=== PATIENT | female | born 1985 | race Caucasian/White ===

== ENCOUNTER → 2016-03-25 | Outpatient (CLI) | payer OTHER ==
[2016-03-25 10:19] LABS: HEMATOCRIT 34.4 % (37-47)
[2016-03-25 11:32] LABS: GTGD 50 Grams
[2016-03-25 11:36] LABS: URINE APPEARANCE CLEAR (CLEAR); URINE BILIRUBIN NEG (NEG); URINE COLOR YELLOW; URINE EPITHELIAL CELL AUTO >30 /lpf (0-5); URINE NITRITE NEG (NEG); URINE PH 6.5 (4.5-7.5); URINE SPECIFIC GRAVITY 1.016 (1.000-1.030); UROBILINOGEN NEG (NEG)
[2016-03-25 11:39] LABS: MANUAL MICROSCOPIC REQUIRED? NO; REVIEW REQ? NO
== END | disposition home or self-care (01) ==
LOC: C.LAB1850 08:50
PROVIDERS: ATTEND Obstetrics & Gynecology
DX: Z34.92 Encounter for supervision of normal pregnancy, unspecified, second trimester (principal)

== ENCOUNTER → 2016-04-22 | Outpatient (CLI) | payer OTHER | END | disposition home or self-care (01) | LOC: C.LAB1850 09:19 | PROVIDERS: ATTEND Obstetrics & Gynecology | DX: Z34.92 Encounter for supervision of normal pregnancy, unspecified, second trimester (principal) ==

== ENCOUNTER → 2016-05-20 | Outpatient (CLI) | payer OTHER | END | disposition home or self-care (01) | LOC: C.LABSPEC 14:39 | PROVIDERS: ATTEND Obstetrics & Gynecology | DX: Z34.83 Encounter for supervision of other normal pregnancy, third trimester (principal) ==

== ENCOUNTER 2016-06-22 17:58 | Outpatient (CLI) | payer OTHER ==
--- NOTE | 2016-06-24 06:55 | EDITING REQUIRED CODING QUERY ---
CARPENTER BULB Carpenter bulb is documented by nursing as being inserted for 06/22/16, please clarify below: ( ) Carpenter bulb was inserted BRIEF DESCRIPTION: ( X ) Carpenter bulb was not inserted ( ) Other, please clarify: Cervix was favorable, so bulb was not inserted. Had NST and went home Thank you for your assistance, Lizzette Quiroga - Elementary Substitute Teacher
== END 2016-06-22 19:20 | disposition home or self-care (01) ==
LOC: C.OPB 17:58 → C.LD 17:58 → C.OPB 19:20
PROVIDERS: ATTEND Obstetrics & Gynecology
DX: O48.0 Post-term pregnancy (principal); Z3A.41 41 weeks gestation of pregnancy

== ENCOUNTER 2016-06-23 07:38 | Inpatient (IN) | payer OTHER ==
[~2016-06-23] VITALS: Ht 162.6 cm; Wt 98.6 kg
[2016-06-23] MEDS ORDERED: LACTATED RINGER'S 1000ML 1,000 ML IV PRN (07:59)
[2016-06-23] MEDS ORDERED: LACTATED RINGER'S 1000ML 500 ML IV PRN ×2 (08:05→15:57)
[2016-06-23] MEDS ORDERED: OXYTOCIN 30 UNITS/500ML NSS IV PRN ×2 (08:15→18:15)
[2016-06-23] MEDS: LACTATED RINGER'S 1000ML 1,000 ML IV SCH ×2 (08:25→15:58)
[2016-06-23] MEDS ORDERED: PENICILLIN G POTASSIUM IV 6 MU in DEXTROSE 5% 250ML 250 ML IV ONE (08:30)
[2016-06-23 08:37] LABS: HEMATOCRIT 36.2 % (37-47); MEAN CELL VOLUME 81.2 fL (80-100); MEAN CORPUSCULAR HEMOGLOBIN 26.5 pg (25-34); MEAN CORPUSCULAR HGB CONC 32.6 g/dl (32-36); PLATELET COUNT 159 K/uL (130-400); RED BLOOD COUNT 4.46 M/uL (4.2-5.4); WHITE BLOOD COUNT 7.94 K/uL (4.8-10.8)
[2016-06-23 09:42] VITALS: Ht 162.6 cm; Wt 98.6 kg
[2016-06-23] MEDS: PENICILLIN G POTASSIUM IV 3 MU in DEXTROSE 5% 100ML 100 ML IV PRN ×2 (13:16→17:37)
[2016-06-23] MEDS ORDERED: BUPIVACAINE 0.25% 30 ML VIAL ONE (14:23)
[2016-06-23] MEDS ORDERED: EpHEDrine SULFATE INJ 50 MG/ML AMP ONE (14:24)
[2016-06-23] MEDS ORDERED: FENTANYL CITRATE INJ 50 MCG/1 ML 2 ML VIAL ONE (14:25)
[2016-06-23] MEDS ORDERED: FENTANYL 2MCG/ML ROPIV 1.25MG/ML 100ML BAG EPI ONE (14:26)
[2016-06-23] MEDS ORDERED: NALOXONE HCL INJ 1 MG in SODIUM CHLORIDE 0.9% 1000ML 1,000 ML IV PRN (15:57)
[2016-06-23] MEDS ORDERED: NALBUPHINE HCL INJ 10 MG/ML AMP IV PRN (16:00)
[2016-06-23] MEDS ORDERED: FENTANYL 2MCG/ML ROPIV 1.25MG/ML 100ML BAG EPI PRN (16:00)
[2016-06-23] MEDS ORDERED: NALOXONE HCL INJ 0.4 MG/1 ML VIAL/CARP IV PRN (16:00)
[2016-06-23] MEDS ORDERED: EpHEDrine SULFATE INJ 50 MG/ML AMP IV PRN (16:00)
[2016-06-23] MEDS ORDERED: PROMETHAZINE HCL INJ 6.25 MG in SODIUM CHLORIDE 0.9% 50ML 50 ML IV PRN (16:00)
[2016-06-23] MEDS ORDERED: ONDANSETRON INJ 2 MG/ML 2 ML VIAL IV PRN (16:00)
[2016-06-23] MEDS ORDERED: DiphenhydrAMINE HCL 50 MG/ML VIAL IV PRN (16:00)
[2016-06-23] MEDS ORDERED: ACETAMINOPHEN/CODEINE 300/30MG TAB PO PRN ×2 (18:15)
[2016-06-23] MEDS ORDERED: LANOLIN OINT EXT PRN ×2 (18:15)
[2016-06-23] MEDS ORDERED: ACETAMINOPHEN 325 MG TAB PO PRN (18:15)
[2016-06-23] MEDS ORDERED: DIPHTHERIA/TETANUS/PERTUSSIS 0.5 ML SYR/VIAL IM. ONE (18:15)
[2016-06-23] MEDS ORDERED: BENZOCAINE 20% AER SPR 82.5 GM CAN EXT PRN (18:15)
[2016-06-23] MEDS ORDERED: HYDROCORTISONE ACETATE 25 MG SUPP PR PRN (18:15)
[2016-06-23] MEDS ORDERED: SUPERCREAM 0.870 % 15GM JAR EXT PRN (18:15)
[2016-06-23] MEDS: IBUPROFEN 600 MG TAB PO PRN (20:51)
[2016-06-23] MEDS: DOCUSATE SODIUM 100 MG CAP PO SCH (21:15)
[2016-06-23 21:50] VITALS: BP 126/74; PULSE 66; TEMP 36.7; O2SAT 96
--- NOTE | 2016-06-23 22:58 | Anesthesiology Progress Note ---
Anesthesia Post Op Note Date & Time June 23, 2016 at 22:57 Vital Signs Pain Intensity: 2.0 Vital Signs Past 12 Hours Date Time Temp Pulse Resp B/P Pulse Ox O2 Delivery O2 Flow Rate FiO2 06/23/16 21:50 36.7 66 18 126/74 96 Room Air 06/23/16 21:50 96 Room Air Notes Mental Status: alert / awake / arousable, participated in evaluation Pt Amnestic to Procedure: Yes Nausea / Vomiting: adequately controlled Pain: adequately controlled Airway Patency, RR, SpO2: stable & adequate BP & HR: stable & adequate Hydration State: stable & adequate Anesthetic Complications: no major complications apparent
[2016-06-23 23:55] VITALS: BP 108/63; PULSE 61; TEMP 36.6; O2SAT 96
[2016-06-24] MEDS: IBUPROFEN 600 MG TAB PO PRN ×4 (01:44→21:56)
--- NOTE | 2016-06-24 02:54 | DELIVERY SUMMARY ---
DATE OF OPERATION: 06/23/2016 FINDINGS: A viable male with Apgars of 8 and 9. Baby delivered by low forceps delivery for terminal bradycardia. Baby delivered over a midline second-degree laceration with left sulcus tear. Cord gases, cord blood samples obtained. Placenta delivered spontaneously and sent for pathological evaluation. Lacerations repaired with 4-0 and 2-0 Vicryl. ESTIMATED BLOOD LOSS: 300 mL LABOR NOTE: The patient is a 30-year-old 2, para 1, with an EDC of 06/14/2016 by last menstrual period and confirmed by first trimester ultrasound, who was admitted at 41-plus weeks gestational age for postdates induction. The patient had had a benign course. Blood type is A positive, antibody negative, rubella immune, hepatitis B negative. She had a negative second trimester maternal serum AFP test and had normal one-hour Glucola x2. The patient did have a positive third trimester beta-strep culture. Upon admission, the patient was 3-4 cm dilated and 70% effaced with -2 station. With a positive GBS, she was started on penicillin, 6 million unit loading dose, then 3 million units every 4 hours until delivery. Pitocin was initiated per induction protocol. After the second dose of Pitocin had hung, the patient had artificial rupture of membranes for clear fluid. The patient had run a low baseline during the third trimester at approximately 105 and that continued in labor. The patient became uncomfortable after the artificial rupture of membranes and anesthesia was consulted and an epidural was placed. After the epidural, the patient had a bradycardic episode into the 80s and 90s. While there was no marked hypotension, there had been a drop in blood pressure, so empiric ephedrine was given of 10 mg to bring the blood pressure up. The heart rate stabilized again at 105 to 110 with good variability and was felt to be category 2 and she began her second stage. When she began her second stage, the baby immediately developed marked bradycardia down into the 60s with no return to baseline. Pitocin was discontinued. The patient was making a good maternal effort at a +2/+3 station and direct OA presentation. Because of the marked bradycardia, eminent delivery was felt to be needed secondary to the now category 3 tracing. Pediatrics was summoned for the delivery and Dewees forceps was placed and the baby was then delivered with the next contraction over a midline second-degree laceration with a left sulcus tear. Nuchal cord x1 was reduced on the perineum with a short cord, good vigorous cry at . Cord was clamped and cut and the baby was taken over to the resuscitation stand to be evaluated by pediatrics. Cord gases, cord blood samples obtained and the placenta was delivered spontaneously. Inspection of the perineum showed the midline second-degree laceration with a left sulcus tear. The cervix had no lacerations. The left sulcus tear was closed with interrupted 2-0 Vicryl figure of eight sutures. The midline laceration was repaired with 4-0 and 2-0 Vicryl. Estimated blood loss 300 mL. Sponge and needle count was correct. I attest to the content of the Intraoperative Record and any orders documented therein. Any exceptio ns are noted below.
[2016-06-24 04:05] VITALS: BP 114/65; PULSE 70; TEMP 36.4; O2SAT 96
[2016-06-24 05:59] LABS: HEMATOCRIT 31.4 % (37-47)
--- NOTE | 2016-06-24 06:35 | Progress Note ---
Subjective June 24, 2016. Subjective conversation w/ patient, physical exam, lab review Ambulation: ambulating normally Voiding: no voiding problems Passing Gas: Yes Diet Tolerance: Regular Diet Lochia: Moderate Feeding Type: Breast Feeding Pain: improves with med Comment: Patient was seen at the bedside. No acute event overnight. Review of Systems Constitutional: No fever Respiratory: No cough, No shortness of breath Cardiac: No chest pain Breast: No breast lump Abdomen: No nausea, No pain, No vomiting Female : No dysuria Denies headache Objective Vital Signs Date Time Temp Pulse Resp B/P Pulse Ox O2 Delivery O2 Flow Rate FiO2 06/24/16 04:05 36.4 70 18 114/65 96 Room Air 06/23/16 23:55 96 Room Air 06/23/16 23:55 36.6 61 18 108/63 96 Room Air 06/23/16 21:50 36.7 66 18 126/74 96 Room Air 06/23/16 21:50 96 Room Air Physical Exam General Appearance: WELL-APPEARING, WD/WN, NO APPARENT DISTRESS Respiratory/Chest: chest non-tender, lungs clear, normal breath sounds, no respiratory distress Cardiovascular: regular rate, rhythm Abdomen: normal bowel sounds, non tender, soft Fundus: Firm, Relation to Umbilicus (at the U) Extremities: non-tender, no pedal edema, no calf tenderness Laboratory Results Last 24 Hours Test 06/23/16 08:27 06/24/16 05:40 White Blood Count 7.94 K/uL Red Blood Count 4.46 M/uL Hemoglobin 11.8 g/dL 10.3 g/dL Hematocrit 36.2 % 31.4 % Mean Corpuscular Volume 81.2 fL Mean Corpuscular Hemoglobin 26.5 pg Mean Corpuscular Hemoglobin Concent 32.6 g/dl RDW Standard Deviation 42.3 fL RDW Coefficient of Variation 14.3 % Platelet Count 159 K/uL Mean Platelet Volume 12.0 fL Medications Current Inpatient Medications Medications (Trade) Dose Ordered Sig/[place] Route Start Time Stop Time Status Last Admin Dose Admin Prenat Multivit/ [place]/Iron/Folic Ac ( Vitamin Tab) 1 tab QAM PO 06/24/16 08:00 07/24/16 07:59 Oxytocin (Pitocin IV) 30 units UD PRN IV 06/23/16 18:15 07/23/16 18:14 Benzocaine (Dermoplast Aero Spr) 1 appln PRN PRN EXT 06/23/16 18:15 07/23/16 18:14 06/23/16 20:51 165 APPLN Cocaine HCl (Supercream 0.870% Cr) BID PRN EXT 06/23/16 18:15 07/07/16 18:14 Hydrocortisone Acetate (Anusol Hc Supp) 25 mg BID PRN AL 06/23/16 18:15 07/23/16 18:14 Lanolin (Lanolin Oint) PRN PRN EXT 06/23/16 18:15 07/23/16 18:14 Ibuprofen (Motrin Tab) 600 mg Q4H PRN PO 06/23/16 18:15 07/23/16 18:14 06/24/16 01:44 600 MG Acetaminophen (Tylenol Tab) 650 mg Q6H PRN PO 06/23/16 18:15 07/23/16 18:14 Acetaminophen/ Codeine Phosphate (Tylenol w/ Codeine #3 Tab) 1 tab Q4H PRN PO 06/23/16 18:15 07/23/16 18:14 Acetaminophen/ Codeine Phosphate (Tylenol w/ Codeine #3 Tab) 2 tab Q4H PRN PO 06/23/16 18:15 07/23/16 18:14 Bisacodyl (Dulcolax Tab) 5 mg 20 PO 06/24/16 20:00 06/24/16 20:01 Docusate Sodium (coLACE CAP) 100 mg BID PO 06/23/16 20:00 07/23/16 19:59 06/23/16 21:15 100 MG Ferrous Sulfate (Feosol Tab) 325 mg DAILY PO 06/24/16 08:00 07/24/16 07:59 Assessment and Plan Post- Day#: 1 Continue Routine Care: A/P: This is a 30 y/o female, , s/p normal vaginal delivery. She is ambulating and clinically stable. Plan: - Vitals signs are reviewed and WNL (Tmax 36.7 ) - Last Hgb is 10.3 - Blood type A+, GBS positive, Rubella Immune - Routine care - Encourage ambulation, monitor and control pain with medication as needed , continue with regular diet as tolerated and monitor lochia - Stool softeners and sitz bath recommended - Encourage breast feeding and educate about breast feeding Resident Physician Supervision Note: I interviewed and examined the patient. Discussed with Dr. Gagnon and agree with findings and plan as documented in the note. Any exceptions or clarifications are listed here: Discussed delivery and need for operative vaginal delivery again Documented By: Earnest Delgadillo
[2016-06-24 07:45] VITALS: BP 109/62; PULSE 76; TEMP 36.6
[2016-06-24] MEDS: DOCUSATE SODIUM 100 MG CAP PO SCH ×2 (07:54→20:15)
[2016-06-24] MEDS: FERROUS SULFATE 325 MG TAB PO SCH (07:54)
[2016-06-24] MEDS: PRENATAL VITAMIN TAB PO SCH (07:54)
[2016-06-24] MEDS ORDERED: PRENATAL VITAMIN TAB PO SCH (08:00)
[2016-06-24 12:05] VITALS: BP 116/77; PULSE 80; TEMP 36.4
[2016-06-24 15:15] VITALS: BP 109/71; PULSE 72; TEMP 36.7; O2SAT 97
[2016-06-24] MEDS ORDERED: BISACODYL 5 MG TABEC PO SCH (20:00)
[2016-06-24 23:45] VITALS: BP 118/66; PULSE 75; TEMP 36.6
--- NOTE | 2016-06-25 03:44 | Discharge Instructions ---
Discharge Instructions Date of Service June 25, 2016. Admission Reason for Admission: Induction Discharge Discharge Diagnosis / Problem: s/p vaginal delivery Discharge Goals Goal(s): Routine recovery after delivery Activity Recommendations Activity Limitations: per Instructions/Follow-up section . Instructions / Follow-Up Instructions / Follow-Up ACTIVITY RECOMMENDATIONS: * Gradual return to full activity over the next 2-3 weeks. * No lifting - nothing heavier than baby over the next 2-3 weeks. * Do not engage in vigorous exercise, sexual activity or sports until cleared by your physician. * Do not drive or operate any motorized equipment until cleared by your physician. * You may shower/bathe daily. MEDICATIONS: For discomfort or pain, you may use Acetaminophen (Tylenol), Ibuprofen (Advil), or Naproxen (Aleve) following the package directions. For constipation you may use Colace following the package directions. BREAST CARE: If you are not breast feeding: * Wear a supportive bra 24 hours a day for one to two weeks. * Avoid stimulating your breasts and nipples as much as possible during the first few weeks after delivery. * When taking a shower, have the warm water hit your back, not breasts. * When your breasts feel full, apply ice packs. Usually three to four times a day helps ease the discomfort. * Take a mild pain medication (Tylenol / Motrin) when you are uncomfortable. If breast feeding: * Use breast milk to lubricate nipples. Lansinoh cream may be used for sore nipples. You do not need to remove cream prior to breast feeding. If using a different brand of cream, check the label for directions regarding removal of cream prior to nursing. * Wear a supportive bra. * If having problems with breasts or breast feeding, call a fundraising consultant or your health care provider. EPISIOTOMY CARE: After delivery, if you have an episiotomy (stitches), the following steps will ease discomfort and aid healing. * For the first 24 hours after delivery, place ice packs next to your episiotomy to help reduce swelling. * After the first 24 hour-period, sitz baths, either portable or in the tub, are suggested. A shower with a shower arm sprayed over the episiotomy may be comforting. * Amanda care should be done after each voiding and bowel movement. Squirt warm water from a plastic bottle over the perineum (region of the body between the anus and urinary opening) and pat dry. * Use Dermoplast to ease discomfort. Shake container. [place] directly over the episiotomy. Place a Tucks on a clean sanitary pad next to your episiotomy. SPECIAL CARE INSTRUCTIONS: When you are discharged from the hospital, it is important for you to follow the instructions listed below: * During the first week at home, you should be able to care for yourself and your baby. In addition, the usual light household activities are encouraged. * Limit your activities to the way you feel. Do not try to clean the house or move furniture. Be sensible. * If you actively engage in sports and have done so up until the time of your delivery, you may resume these activities as soon as you feel able. This may take up to one month or even longer. Use good judgment. * Continue to take your vitamins for at least six weeks after the of your baby. * Your diet need not be limited unless you were on a special diet before your delivery. Breast-feeding mothers need around 2500 calories per day and at least 64-80 ounces of fluid per day (8 to 10 glasses). * You should eat foods from the four major food groups. Crash diets or fad diets are to be avoided. Eating lean meats, fresh fruits and vegetables, low-fat dairy products, high fiber foods and a regular exercise program, will help you get back to your pre- weight without putting your health at risk. * Constipation is sometimes a problem after delivery. Take a mild laxative as needed. If breast feeding, Milk of Magnesia is acceptable to use. You may use a suppository or Fleets enema if no episiotomy. * A daily shower or tub bath is suggested. Be sure to thoroughly and gently dry the perineum. * A bloody vaginal discharge will usually continue until around four weeks post . A small amount of bleeding may continue for as long as six weeks. Vaginal discharge changes from the bright red bleeding after delivery to pink then brownish and finally yellowish-pink before becoming white and disappearing. * Bleeding may increase with activity. Your first period may come in 4-8 weeks. If you are breast feeding, your period may be delayed even longer. * Chestnut (sex) can begin whenever both you and your partner feel comfortable and do not have any form of genital infection. It is recommended that you wait at least six weeks for internal and external healing to occur. If you have questions, please talk to your health care practitioner. A condom should be used to prevent infection and . * Foreplay, gentle intercourse and lubrication is very important the first several times to prevent pain. A water-based lubricant such as K-Y jelly or Astroglide may be used. * If you have RH negative blood and your baby is RH positive, you will receive RHOGAM by injection prior to discharge. The nurse will give you a card to keep with you that has the date and place that you received RHOGAM after delivery. * During your care, you had a Rubella screen done to check for the presence of rubella antibodies in your blood. If your test was negative, you will receive a Rubella vaccine prior to discharge. This vaccine may cause a fever, soreness at the injection site and flu-like symptoms. If these symptoms persist, notify your health care practitioner. is not advised for one month after a Rubella vaccine. * Verbalizes understanding of car seat law as reviewed with patient nursing. * Car Seat hand-out given and reviewed with patient by nursing. * Shaken baby information reviewed with patient by nursing. Call you doctor if: * Heavy bleeding (saturating several pads an hour) or passing clots the size of your fist. * A fever >101 degrees F (38.3 degrees C) on two occasions four hours apart and /or chills. * Unusual pain in the pelvic or vaginal areas. * "Baby Blues" lasting longer than two weeks. If you have any questions or concerns, call your health care practitioner at . FOLLOW UP VISIT: * Please call the office at to schedule a 6 week examination. It is important you keep this appointment. It is important for you to make arrangements for either yearly or twice yearly check-ups thereafter. Current Hospital Diet Patient's current hospital diet: Regular OB Diet Discharge Diet Recommended Diet: Regular OB Diet Pending Studies Studies pending at discharge: no Medical Emergencies . Who to Call and When: Medical Emergencies: If at any time you feel your situation is an emergency, please call 911 immediately. . Non-Emergent Contact Non-Emergency issues call your: Primary Care Provider, [employer] . . "Provider Documentation" section prepared by Sharla Ch. . VTE Core Measure Inpt VTE Proph given/why not?: Treatment not indicated
[2016-06-25] MEDS: IBUPROFEN 600 MG TAB PO PRN ×2 (06:13→11:39)
--- NOTE | 2016-06-25 07:23 | Progress Note ---
Subjective June 25, 2016. Subjective conversation w/ patient, physical exam Ambulation: ambulating normally Voiding: no voiding problems Passing Gas: Yes Diet Tolerance: Regular Diet Lochia: Moderate Feeding Type: Breast Feeding Review of Systems Constitutional: No problem reported Respiratory: No problem reported Cardiac: No problem reported Breast: No problem reported Abdomen: No problem reported Female : No problem reported Objective Vital Signs Date Time Temp Pulse Resp B/P Pulse Ox O2 Delivery O2 Flow Rate FiO2 06/24/16 23:45 Room Air 06/24/16 23:45 36.6 75 16 118/66 Room Air 06/24/16 16:30 Room Air 06/24/16 15:15 36.7 72 16 109/71 97 Room Air 06/24/16 12:05 36.4 80 18 116/77 Room Air 06/24/16 07:45 Room Air 06/24/16 07:45 36.6 76 18 109/62 Room Air Physical Exam General Appearance: WELL-APPEARING, NO APPARENT DISTRESS Respiratory/Chest: no respiratory distress Cardiovascular: regular rate, rhythm Abdomen: non tender, soft Fundus: Firm Extremities: normal inspection Laboratory Results Last 24 Hours Test 06/24/16 05:40 Hemoglobin 10.3 g/dL Hematocrit 31.4 % Assessment and Plan Post- Day#: 2 Continue Routine Care: PPD#2 feeling well. Discharge home today. Discharge teaching done. RTO 6w .
[2016-06-25 07:40] VITALS: BP 106/65; PULSE 53; TEMP 36.5; O2SAT 95
[2016-06-25 08:00] VITALS: BP 100/65; PULSE 95; TEMP 37
[2016-06-25] MEDS: FERROUS SULFATE 325 MG TAB PO SCH (08:13)
[2016-06-25] MEDS: DOCUSATE SODIUM 100 MG CAP PO SCH (08:13)
[2016-06-25] MEDS: PRENATAL VITAMIN TAB PO SCH (08:13)
[2016-06-25 12:30] VITALS: BP_DIAS 65; PULSE 53; TEMP 36.5
--- NOTE | 2016-06-25 18:53 | DISCHARGE SUMMARY ---
ADMITTING DIAGNOSIS: 1. Postdates at 41+ weeks' gestational age. DISCHARGE DIAGNOSES: 1. Same. 2. Terminal bradycardia. PROCEDURES PERFORMED: 1. Low forceps delivery. 2. Repair of midline laceration and left sulcus tear. ADMISSION HISTORY: The patient is a 30-year-old 2, para 1 with an EDC of 14 June by last menstrual period and confirmed by first trimester ultrasound who was admitted at 41+ weeks' gestational age for post-dates induction. The patient has had a benign course. Her blood type is A positive, antibody negative, rubella immune, hepatitis B negative. She had a negative second trimester maternal serum AFP and had a normal 1 hour Glucola x2. The patient had a positive third trimester beta strep culture. ADMISSION PHYSICAL EXAMINATION: GENERAL: Showed a pleasant gravid female in no acute distress. ABDOMEN: Gravid, vertex, positive heart tones, estimated weight of 8 pounds. PELVIC: Showed the cervix to be 3-4 cm dilated, 70% effaced and minus 2 station. EXTREMITIES: Showed no deep calf tenderness. NEUROLOGIC: Grossly intact. ADMISSION LABORATORY VALUES: Showed an H\T\H of 11.8 and 36.2. HOSPITAL COURSE: On the day of admission, the patient was started on induction per Pitocin. She received penicillin 6 million unit loading dose and 3 million units every 4 hours until delivery. After the second dose of Pitocin had hung, the patient had artificial rupture of membranes for clear fluid. The patient had run a low baseline during the third trimester of approximately 105 and that continued in labor. The patient became uncomfortable after rupture of membranes and anesthesia was consulted and an epidural was placed. After the epidural, the patient had bradycardic episodes into the 80s and 90s while there was no marked hypotension, there had been a drop in blood pressure so empiric ephedrine was given 10 mg to bring the blood pressure up. The heart rate stabilized again at 105-110 with good variability and was felt to be category 2. After examination, the patient was fully dilated and began her second stage. The baby immediately developed marked bradycardia down into the 60s with no return to baseline. Pitocin was discontinued. The patient was making a good maternal effort with a +2/+3 station in a direct OA presentation. Because of the marked bradycardia, imminent delivery was felt to be needed secondary to the now category 3 tracings. Pediatrics was summoned for the delivery Garret forceps were placed on the baby and the baby was then delivered with the next contraction over midline second degree laceration with a left sulcus tear. Nuchal cord x1 was reduced on the perineum. A short cord was noted. There was good vigorous cry at , but the baby was passed over to pediatrics who was in attendance for the delivery. , the patient did well, H\T\H came back stable at 10.3 and 31.4. By the 2nd postoperative day, the patient was tolerating a regular diet and ambulating without difficulty. She was discharged home on the second day with the routine discharge instructions and will be followed up in the office in 6 weeks' time for a routine check but as always she has been instructed to call with any questions, problems or difficulties.
== END 2016-06-25 12:30 | disposition home or self-care (01) | DRG 775 ==
LOC: C.LD 07:38 → C.OBG 21:40
PROVIDERS: ADMIT Obstetrics & Gynecology; ATTEND Obstetrics & Gynecology
PROC: 0KQM0ZZ Repair Perineum Muscle, Open Approach (ICD-10-PCS; principal; 2016-06-23)
PROC: 10D07Z3 Extraction of Products of Conception, Low Forceps, Via Natural or Artificial Opening (ICD-10-PCS; principal; 2016-06-23)
PROC: 3E0P7GC Introduction of Other Therapeutic Substance into Female Reproductive, Via Natural or Artificial Opening (ICD-10-PCS; 2016-06-23)
DX: O48.0 Post-term pregnancy (principal); O70.1 Second degree perineal laceration during delivery; O99.820 Streptococcus B carrier state complicating pregnancy; O76 Abnormality in fetal heart rate and rhythm complicating labor and delivery; O69.81X0 Labor and delivery complicated by cord around neck, without compression, not applicable or unspecified; O69.3XX0 Labor and delivery complicated by short cord, not applicable or unspecified; Z3A.41 41 weeks gestation of pregnancy; Z37.0 Single live birth